=== PATIENT | female | born 1975 | race Caucasian/White ===

== ENCOUNTER 2020-03-29 07:09 | Day surgery (SDC) | payer BC, OTHER ==
[~2020-03-29 07:09] MED LIST: Lactated Ringers 1,000 ML IV SCH; Lidocaine 1%/Sod Bicarbonate in NS 8.4% 1 ML Syringe IDERM PRN; Sodium Chloride 0.9% 10 ML Syringe FLUSH PRN
[2020-03-29] MEDS ORDERED: Bupivacaine 0.5% 30 ML SDV ONE (07:17)
[2020-03-29] MEDS ORDERED: Lidocaine 1% with EPINEPHrine 1:100,000 20 ML MDV ONE (07:17)
[2020-03-29] MEDS ORDERED: Sodium Chloride 0.9% 50 ML SDV ONE (07:17)
[2020-03-29] MEDS ORDERED: Rocuronium 50 MG/5 ML Vial ONE (07:18)
[2020-03-29] MEDS ORDERED: Propofol 200 MG/20 ML SDV ONE ×2 (07:18→08:49)
[2020-03-29] MEDS ORDERED: fentaNYL 250 MCG/5 ML SDV ONE (07:19)
[2020-03-29] MEDS ORDERED: Lidocaine 1% 4 ML ONE (07:19)
[2020-03-29] MEDS ORDERED: Midazolam 1 MG/ML 2 ML SDV ONE ×2 (07:19→08:57)
[2020-03-29] MEDS ORDERED: Succinylcholine/Sod PF 100 MG/5 ML SYRINGE IV ONE (07:29)
--- NOTE | 2020-03-29 07:42 | PCM.PREANE ---
Preanesthetic Assessment - Procedure Proposed Procedure: Laparoscopic assisted vaginal hysterectomy with sling - Anesthesia/Transfusion/Family Hx Anesthesia History: Prior Anesthesia Reaction Type of Anesthesia Reaction: Excessive Nausea/Vomiting Transfusion History: No Prior Transfusion(s) - Review of Systems General: No Symptoms Pulmonary: No Symptoms Cardiovascular: No Symptoms Gastrointestinal: No Symptoms Neurological: No Symptoms Other: Reports: None - Physical Assessment NPO Status Date: 03/28/20 NPO Status Time: 23:30 Vital Signs: 125/79, 88, 16, 99% RA, 98F ASA Class: 2 Mental Status: Alert & Oriented x3 Airway Class: Mallampati = 1 Dentition: Reports: Normal Dentition Thyro-Mental Finger Breadths: 3 Mouth Opening Finger Breadths: 3 ROM/Head Extension: Full Lungs: Clear to Auscultation, Normal Respiratory Effort Cardiovascular: Regular Rate, Regular Rhythm - Lab Values: Laboratory Last Values WBC 4.79 K/mm3 (3.98-10.04) 03/27/20 12:59 RBC 4.68 M/mm3 (3.98-5.22) 03/27/20 12:59 Hgb 13.4 gm/dl (11.2-15.7) 03/27/20 12:59 Hct 41.4 % (34.1-44.9) 03/27/20 12:59 MCV 88.5 fl (79.4-94.8) 03/27/20 12:59 MCH 28.6 pg (25.6-32.2) 03/27/20 12:59 MCHC 32.4 g/dl (32.2-35.5) 03/27/20 12:59 RDW Std Deviation 47.8 fL (36.4-46.3) H 03/27/20 12:59 Plt Count 362 K/mm3 (182-369) 03/27/20 12:59 MPV 10.2 fl (9.4-12.3) 03/27/20 12:59 Neut % (Auto) 62.2 % (34.0-71.1) 03/27/20 12:59 Lymph % (Auto) 26.7 % (19.3-51.7) 03/27/20 12:59 Darke % (Auto) 8.1 % (4.7-12.5) 03/27/20 12:59 Eos % (Auto) 1.5 (0.7-5.8) 03/27/20 12:59 Baso % (Auto) 1.3 % (0.1-1.2) H 03/27/20 12:59 Neut # (Auto) 2.98 K/mm3 (1.56-6.13) 03/27/20 12:59 Lymph # (Auto) 1.28 K/mm3 (1.18-3.74) 03/27/20 12:59 Darke # (Auto) 0.39 K/mm3 (0.24-0.36) H 03/27/20 12:59 Eos # (Auto) 0.07 K/mm3 (0.04-0.36) 03/27/20 12:59 Baso # (Auto) 0.06 K/mm3 (0.01-0.08) 03/27/20 12:59 Creatinine 0.7 mg/dL (0.55-1.02) 03/27/20 12:59 Est Cr Clr Drug Dosing TNP 03/27/20 12:59 Estimated GFR (MDRD) > 60 mL/min (>60) 03/27/20 12:59 Urine Color Light yellow (Yellow) 03/27/20 12:59 Urine Appearance Clear (Clear) 03/27/20 12:59 Urine pH 7.0 (5.0-8.0) 03/27/20 12:59 Ur Specific [place] 1.020 (1.005-1.030) 03/27/20 12:59 Urine Protein Negative (Negative) 03/27/20 12:59 Urine Glucose (UA) Negative (Negative) 03/27/20 12:59 Urine Ketones Negative (Negative) 03/27/20 12:59 Urine Occult Blood Negative (Negative) 03/27/20 12:59 Urine Nitrite Negative (Negative) 03/27/20 12:59 Urine Bilirubin Negative (Negative) 03/27/20 12:59 Urine Urobilinogen 0.2 (0.2-1.0) 03/27/20 12:59 Ur Leukocyte Esterase Negative (Negative) 03/27/20 12:59 Urine HCG, Qual Negative (NEGATIVE) 03/27/20 12:59 SARS Virus RNA (PCR) Negative (NEGATIVE) 03/27/20 13:27 Blood Type O POSITIVE 03/27/20 12:59 Gel Antibody Screen Negative 06/10/20 12:59 - Allergies Allergies/Adverse Reactions: Allergies Allergy/AdvReac Type Severity Reaction Status Date / Time No Known Allergies Allergy Verified 03/28/20 08:45 - Acknowledgements Anesthesia Type Planned: General Anesthesia Pt an Appropriate Candidate for the Planned Anesthesia: Yes Alternatives and Risks of Anesthesia Discussed w Pt/Guardian: Yes Pt/Guardian Understands and Agrees with Anesthesia Plan: Yes PreAnesthesia Questionnaire HEENT History: Reports: None Cardiovascular History: Reports: None Respiratory History: Reports: None Gastrointestinal History: Reports: None Genitourinary History: Reports: None SHAREPOINT APPLICATION ARCHITECT History: Reports: Endometrial Ablation Musculoskeletal History: Reports: None Neurological History: Reports: None Psychiatric History: Reports: None Endocrine/Metabolic History: Reports: None Hematologic History: Reports: None Immunologic History: Reports: None Oncologic (Cancer) History: Reports: Breast Dermatologic History: Reports: None - Past Surgical History Head Surgeries/Procedures: Reports: None HEENT Surgical History: Reports: Adenoidectomy, Tonsillectomy Cardiovascular Surgical History: Reports: None Respiratory Surgical History: Reports: None GI Surgical History: Reports: Cholecystectomy, EGD Female Surgical History: Reports: Section, Tubal Ligation Endocrine Surgical History: Reports: None Neurological Surgical History: Reports: None Musculoskeletal Surgical History: Reports: None Oncologic Surgical History: Reports: None - SUBSTANCE USE Smoking Status *Q: Never Smoker Recreational Drug Use History: No - HOME MEDS Home Medications: Home Meds Cyclobenzaprine [Flexeril] 5 mg PO BID PRN 03/28/20 [History] Mometasone Furoate 1 dose TOP BID PRN 03/28/20 [History] Tamoxifen Citrate 20 mg PO DAILY 03/28/20 [History] - CURRENT (IN HOUSE) MEDS Current Meds: Current Medications Lactated Ringer's (Ringers, Lactated) 1,000 mls @ 125 mls/hr IV ASDIRECTED GUME Stop: 03/29/20 23:00 Lidocaine/Sodium Bicarbonate (Buffered Lidocaine 1% In Ns 8.4%) 0.25 ml IDERM ONETIME PRN PRN Reason: Prior to IV Start Stop: 03/29/20 18:00 Sodium Chloride (Saline Flush) 10 ml FLUSH ASDIRECTED PRN PRN Reason: Keep Vein Open Stop: 03/29/20 18:00 Discontinued Medications Bupivacaine HCl (Marcaine 0.5%) Confirm Administered Dose 30 ml .ROUTE .STK-MED ONE Stop: 03/29/20 07:18 Fentanyl (Sublimaze) Confirm Administered Dose 250 mcg .ROUTE .STK-MED ONE Stop: 03/29/20 07:20 Lidocaine HCl (Xylocaine-Mpf 1%) Confirm Administered Dose 4 mls @ as directed .ROUTE .STK-MED ONE Stop: 03/29/20 07:20 Lidocaine/Epinephrine (Xylocaine 1% With Epinephrine 1:100,000) Confirm Administered Dose 20 ml .ROUTE .STK-MED ONE Stop: 03/29/20 07:18 Midazolam HCl (Versed 1 Mg/Ml) Confirm Administered Dose 2 mg .ROUTE .STK-MED ONE Stop: 03/29/20 07:20 Propofol (Diprivan 20 Ml) Confirm Administered Dose 200 mg .ROUTE .STK-MED ONE Stop: 03/29/20 07:19 Rocuronium [place] (Zemuron) Confirm Administered Dose 50 mg .ROUTE .STK-MED ONE Stop: 03/29/20 07:19 Sodium Chloride (Normal Saline) Confirm Administered Dose 50 ml .ROUTE .STK-MED ONE Stop: 03/29/20 07:18
[2020-03-29] MEDS ORDERED: ceFAZolin 1 GM Vial ONE (08:18)
[2020-03-29] MEDS ORDERED: Dexamethasone 4 MG/ML 5 ML MDV ONE (08:24)
[2020-03-29] MEDS ORDERED: Ondansetron 4 MG/2 ML SDV ONE (08:24)
[2020-03-29] MEDS ORDERED: Lactated Ringers 1,000 ML ONE (08:29)
[2020-03-29] MEDS ORDERED: HYDROmorphone 0.5 MG/0.5 ML Syringe ONE ×2 (08:36→08:54)
[2020-03-29] MEDS ORDERED: HYDROmorphone 0.5 MG/0.5 ML Syringe IVPUSH PRN (09:35)
[2020-03-29] MEDS ORDERED: Prochlorperazine 10 MG/2 ML SDV IV PRN (09:35)
[2020-03-29] MEDS ORDERED: fentaNYL 100 MCG/2 ML SDV IVPUSH PRN (09:35)
[2020-03-29] MEDS ORDERED: Cyclobenzaprine 10 MG Tab PO PRN (09:58)
[2020-03-29] MEDS ORDERED: MOMETASONE FUROATE TOP PRN (09:58)
[2020-03-29] MEDS ORDERED: Acetaminophen/oxyCODONE 325-5 MG Tab PO PRN (09:59)
[2020-03-29] MEDS ORDERED: Ketorolac 30 MG/ML SDV IVPUSH SCH (10:00)
--- NOTE | 2020-03-29 10:08 | PCM.OPNOTE ---
- General Post-Op/Procedure Note Date of Surgery/Procedure: 03/29/20 Operative Procedure(s): 1. Laparoscopically assisted vaginal hysterectomy with bilateral salpingo-oophorectomy. 2. Subfascial mid-urethral sling Findings: Patient is status post tubal ligation with midportion of the tube missing bilaterally. Ovaries, remainder fallopian tubes, uterus, anterior posterior cul- de-sac, appendix otherwise appeared normal. Patient did have a grade 1 cystocele. Mild rectal relaxation but not to the point of a grade 1 rectocele. Pre Op Diagnosis: 1. History of breast cancerright sideestrogen receptor positiverecommendation for prophylactic bilateral oophorectomy. 2. Stress urinary incontinence. Post-Op Diagnosis: Same Anesthesia Technique: General ET Tube Other Anesthesia Type: Marcaine 0.5%10 mL total, lidocaine quarter percent with [id number] mL Primary Surgeon: Tad Alas Secondary Surgeon: Ap Neal Anesthesia Provider: Rafael Sevilla Family Law Attorney: Rossana Bourne Reason Family Law Attorney Was Necessary: Retraction, assistance, patient safety, quality of care. Pathology: Uterus, fallopian tubes, ovaries as one specimen Fluid Replacement, Intraop: 1,500 Output, Urine Amount: 300 EBL in mLs: 20 Drain/Tube Comments:: Indwelling bladder catheter during surgery removed at the end of the case. Complications: None Condition: Good Free Text/Narrative:: Surgery duration: 64 minutes: The patient was taken to the operating room placed in supine position on the operating table. She received 2 g of Ancef preoperatively for infection prophylaxis. She had signed consent previously. After adequate anesthesia patient was placed in a dorsal lithotomy position. It should be noted she had sequential compression stockings in place for DVT prophylaxis. A uterine manipulator was placed as was an indwelling bladder catheter. This was done after adequate prepping and draping. The patient was placed in supine position and 3 laparoscopic port sites were developed. Marcaine 0.5% approximately 3-5 mL was injected at each site. Varies needle was placed and pneumoperitoneum was achieved with 3 L of CO2. Infraumbilical, suprapubic and 2 lateral port sites were developed. Under laparoscopic guidance the upper portion of the hysterectomy was performed. The right infundibulopelvic ligament was elevated and crossclamped using the [employer] computerized cautery device. The round ligament was taken down to the broad ligament, cardinal ligament including uterine vasculature. At this time attention was turned to the left side and the left infundibulopelvic ligament and the triple ligament were then taken down in a similar fashion. Broad ligament was taken down to and including the area of the uterine vasculature. Uterine vasculature was developed in the usual fashion using the cautery system. Both uterine arteries were identified and developed. Vaginal approach was then undertaken. The patient was placed in the dorsal lithotomy position and a weighted speculum was placed in the vagina. The cervix was injected with lidocaine quarter percent with epinephrine 20 mL total. A full circumference incision was made through the epithelium around the cervix. Posterior cul-de-sac was entered without problems. The left uterosacral ligament and then the right uterosacral were taken down using the Enseal vessel closure system. The cardinal ligament and what remained of the uterine vascular vessels and cervical branches of the vessels were managed with the Enseal vessel closure system on each side. Anterior cul-de-sac was then entered and the remaining portion of broad ligament on the right side and a small portion of broad ligament remaining on the left side were then developed in the usual fashion. Uterus was then removed. At this point the uterus was completely removed and sent as specimen. The vaginal cuff was then run with a locked running suture of 0 Monocryl from the 2 o'clock position to the 10 o'clock position. The vagina was closed with a running locked suture of 0 Monocryl. Hemostasis was confirmed this time and no bleeding was noted. Laparoscopy was then performed to ensure hemostasis. Pneumoperitoneum was reestablished and the laparoscope was placed. The pelvis was found to be hemostatically intact. There was no evidence of any bowel adhesion to the vaginal cuff area noted. The sleeves were removed under direct visualization and the upper sleeve was removed after reversal of the pneumoperitoneum. Each of these sites were closed with a single interrupted suture of 3-0 Monocryl. They were further approximated with Dermabond skin glue. At this point the patient was awakened from general endotracheal anesthesia. The epithelium overlying the urethra was grasped approximately 1 cm from the urethral meatus and approximately 2 cm cephalad from there with Allis clamps. The area of the skin overlying the medial aspect of the obturator foramen on each side just posterior to the origin the abductor longus muscle was marked with a marking pen. These 2 areas and the sub-fascial layer of the vaginal were then infiltrated with lidocaine quarter percent with epinephrine-total of approximately 10 mL was used. Incisions made in the epithelium overlying the urethra and 2 small stab wounds 3 mm in length were made in the 2 areas of the panty line of the patient. The subfascial planes were adequately dissected bilaterally to allow placement of the mesh. The helical adapter was then placed through the obturator on patient's left side, then brought out through the vaginal subfascial plane. Mesh was attached to it and then was pulled back through the obturator foramen. Same was done on the right side. Mesh was then snugged up to 8 Dilator 15 mm in diameter which was was used as a spacer to place the mesh in a tension-free position. At this point the mesh was cut off at the skin surface and the dilator was removed. The midline epithelium was closed with a short running suture of 3-0 Monocryl. Skin incisions were closed with Dermabond skin glue. These bladder was filled with approximately 240 cc of normal saline to facilitate voiding and therefore discharged home. The patient was returned to supine position, awakened from general endotracheal anesthesia and was discharged from operating room in good condition The Moe catheter had been removed by this time. She is discharged from the operating room in good condition.
--- NOTE | 2020-03-29 10:17 | PCM.POSTAN ---
POST ANESTHESIA ASSESSMENT - MENTAL STATUS Mental Status: Somnolent - VITAL SIGNS Vital Signs: Last Vital Signs Temp 97.6 F 03/29/20 10:05 Pulse 88 03/29/20 07:15 Resp 12 03/29/20 10:05 BP 108/63 03/29/20 10:05 Pulse Ox 100 03/29/20 10:05 - RESPIRATORY Respiratory Status: Respiratory Rate WNL, Airway Patent, O2 Saturation Stable, Supplemental Oxygen (with oral a/w #90) - CARDIOVASCULAR CV Status: Pulse Rate WNL, Blood Pressure Stable - GASTROINTESTINAL GI Status: No Symptoms - PAIN Pain Score: 0 - POST OP HYDRATION Hydration Status: Adequate & Stable
[2020-03-29] MEDS ORDERED: Ibuprofen 600 MG Tab PO PRN (14:00)
--- NOTE | 2020-03-29 14:13 | PCM48HPAN ---
Post Anesthesia Note - EVALUATION WITHIN 48HRS OF ANESTHETIC Vital Signs in Normal Range: Yes Patient Participated in Evaluation: Yes Respiratory Function Stable: Yes Airway Patent: Yes Cardiovascular Function Stable: Yes Hydration Status Stable: Yes Pain Control Satisfactory: Yes Nausea and Vomiting Control Satisfactory: Yes Mental Status Recovered: Yes Vital Signs: Last Vital Signs Temp 97.6 F 03/29/20 10:05 Pulse 70 03/29/20 12:30 Resp 16 03/29/20 12:30 BP 100/65 03/29/20 12:30 Pulse Ox 99 03/29/20 12:55 - COMMENTS/OBSERVATIONS Free Text/Narrative:: Patient is being discharged home
[2020-03-29] MEDS ORDERED: Ketorolac 30 MG/ML SDV IM PRN (17:00)
[2020-03-30] MEDS ORDERED: TAMOXIFEN CITRATE 20 MG PO SCH (09:00)
== END 2020-03-29 13:00 | disposition home or self-care (01) ==
LOC: JD.SDS 07:09
PROVIDERS: ATTEND Obstetrics & Gynecology
DX: Z40.02 Encounter for prophylactic removal of ovary(s) (principal); N80.0 Endometriosis of uterus; N81.10 Cystocele, unspecified; N39.3 Stress incontinence (female) (male); R35.1 Nocturia; N83.8 Other noninflammatory disorders of ovary, fallopian tube and broad ligament; Z11.59 Encounter for screening for other viral diseases; K66.0 Peritoneal adhesions (postprocedural) (postinfection); Z85.3 Personal history of malignant neoplasm of breast; Z98.51 Tubal ligation status; Z17.0 Estrogen receptor positive status [ER+]; Z98.890 Other specified postprocedural states
CPT/HCPCS: 00944; 36415; 81003; 81025; 82565; 85025; 86850; 86900; 86901; C1771; J0330; J0690; J1100; J1170; J1885; J2001; J2250; J2405; J2704; J3010; J3490; J7120; U0002

== ENCOUNTER 2022-08-11 13:11 | Emergency (ER) | payer BC, OTHER ==
[2022-08-11] MEDS ORDERED: HYDROmorphone 1 MG/ML Syringe IVPUSH STA ×2 (13:53→15:37)
[2022-08-11] MEDS ORDERED: Ondansetron 4 MG/2 ML SDV IVPUSH ONE ×2 (13:53→19:33)
[2022-08-11] MEDS ORDERED: Sodium Chloride 0.9% 1,000 ML IV SCH (14:00)
[2022-08-11] MEDS ORDERED: Morphine 4 MG/ML Syringe IVPUSH ONE (14:37)
[2022-08-11 14:40] LABS: ESTIMATED GFR 109 mL/min (>60)
[2022-08-11] MEDS ORDERED: Tamsulosin 0.4 MG Cap.ER PO ONE (14:46)
[2022-08-11] MEDS ORDERED: Metoclopramide 10 MG/2 ML SDV IVPUSH ONE (16:53)
== END 2022-08-11 19:56 | disposition home or self-care (01) ==
LOC: JD.ED 13:11
DX: N20.1 Calculus of ureter (principal); Z79.899 Other long term (current) drug therapy; Z90.49 Acquired absence of other specified parts of digestive tract
CPT/HCPCS: 36415; 74176; 80053; 81001; 85025; 87086; 96361; 96374; 96375; 96376; 99284; A9270; J1170; J2270; J2405; J2765; J7030